=== PATIENT | female | born 1965 | race Asian ===

== ENCOUNTER 2017-09-05 10:27 | Emergency (ER) | payer OTHER ==
[~2017-09-05] VITALS: Ht 160 cm; Wt 74.8 kg
== END 2017-09-05 11:43 | disposition home or self-care (01) ==
LOC: ED 10:27
DX: M79.672 Pain in left foot (principal); I10 Essential (primary) hypertension
CPT/HCPCS: 99282

== ENCOUNTER 2018-02-02 08:56 | Outpatient (CLI) | payer OTHER | END 2018-02-02 20:15 | disposition home or self-care (01) | LOC: LABW 08:56 | DX: J30.1 Allergic rhinitis due to pollen (principal) | CPT/HCPCS: 36415; 86003 ==

== ENCOUNTER 2018-02-22 08:07 | Outpatient (CLI) | payer OTHER | END 2018-02-22 23:29 | disposition home or self-care (01) | LOC: CT 08:07 | DX: R22.1 Localized swelling, mass and lump, neck (principal) | CPT/HCPCS: 36415; 82565; 84520; Q9963 ==